=== PATIENT | male | born 1960 | race Caucasian/White ===

== ENCOUNTER 2019-04-04 09:48 | Outpatient (REF) | payer OTHER, SELFPAY ==
[2019-04-04 13:26] LABS: ALT 24 U/L (12-78); AST 22 U/L (15-37); Albumin 3.8 g/dL (3.4-5.0); Alkaline Phosphatase 70 U/L (46-116); Anion Gap 7.7 mmol/L (3-11); BUN 19 mg/dL (7-18); Bilirubin, Total 0.3 mg/dL (0.2-1.0); CO2 29.3 mmol/L (21.0-32.0); CREATININE 0.84 mg/dL (0.70-1.30); Calcium 9.1 mg/dL (8.5-10.1); Calculated LDL 97; Chloride 106 mmol/L (98-107); Cholesterol 159 mg/dL (50-200); Glucose 93 mg/dL (70-100); HDL Cholesterol 55 mg/dL (40-60); Potassium 4.8 mmol/L (3.5-5.1); Sodium 143 mmol/L (136-145); Total Protein 7.1 g/dL (6.4-8.2); Triglyceride 35 mg/dL (30-150)
== END 2019-04-04 10:08 ==
LOC: NCHCN 09:48
PROVIDERS: PCP Nurse Practitioner; Visit Provider Nurse Practitioner
DX: E78.5 Hyperlipidemia, unspecified (principal); R00.2 Palpitations
CPT/HCPCS: 80053; 80061; 83721

== ENCOUNTER 2019-04-24 01:14 | Outpatient (CLI) | payer OTHER, SELFPAY ==
--- NOTE | 2019-04-24 13:00 | DI.US_ITS ---
SYMPTOMS/DIAGNOSIS: RIGHT TESTICULAR PAIN, N50.811, X 6 MONTHS, SWELLING X SEVERAL YEARS, S/P HERNIA SURGERY SEVERAL YEARS AGO SCROTAL ULTRASOUND: There are bilateral hydroceles, right greater than left. Debris is seen within the hydroceles. There is no evidence of varicocele. There is a small spermatocele in the right epididymal head measuring 3 mm. There is a mildly prominent left testicular appendage. The testicles are normal in size and show normal echogenicity and blood flow. There is no evidence of mass or torsion. IMPRESSION: Bilateral hydroceles, right greater than left.
== END 2019-04-24 01:34 ==
PROVIDERS: PCP Nurse Practitioner; Visit Provider Nurse Practitioner
DX: N50.811 Right testicular pain (principal); N43.3 Hydrocele, unspecified; N43.41 Spermatocele of epididymis, single
CPT/HCPCS: 76870

== ENCOUNTER 2021-05-26 07:35 | Outpatient (REF) | payer OTHER, SELFPAY ==
[2021-05-26 17:29] LABS: HCT 47.8 % (40.0-50.0); HGB 15.5 g/dL (13.5-17.5); MCH 31.8 pg (27.0-33.0); MCHC 32.4 % (32.0-36.0); MPV 11.7 fL (8.0-11.0); Platelet Count 232 10^3/uL (130-400); RBC 4.88 10^6/uL (4.36-5.78); RDW-SD 46.9 fL; WBC 7.44 10^3/uL (4.4-10.8)
[2021-05-26 17:40] LABS: ALT 22 U/L (16-63); AST 18 U/L (15-37); Alkaline Phosphatase 70 U/L (46-116); Anion Gap 11.9 mmol/L (3-11); BUN 18 mg/dL (7-18); Bilirubin, Total 0.3 mg/dL (0.2-1.0); CO2 27.1 mmol/L (21.0-32.0); CREATININE 0.9 mg/dL (0.70-1.30); Calculated LDL 96 mg/dL (<100); Chloride 107 mmol/L (98-107); Cholesterol 159 mg/dL (<200); Glucose 95 mg/dL (74-106); HDL Cholesterol 53 mg/dL (40-60); Magnesium 2.1 mg/dL (1.8-2.4); Potassium 4.7 mmol/L (3.5-5.1); Sodium 146 mmol/L (136-145); TSH (W/Ref FT4) 1.96 uIU/mL (0.36-3.74); Total Protein 7.2 g/dL (6.4-8.2); Triglyceride 54 mg/dL (<150)
[2021-05-28 09:27] LABS: PSA, Screening 0.4 ng/mL (0.0-3.5)
== END 2021-05-26 07:36 | disposition home or self-care (01) ==
LOC: NCHCN 07:35
PROVIDERS: PCP Nurse Practitioner; Visit Provider Nurse Practitioner
DX: Z00.00 Encounter for general adult medical examination without abnormal findings (principal); R00.2 Palpitations; E78.5 Hyperlipidemia, unspecified; Z12.5 Encounter for screening for malignant neoplasm of prostate
CPT/HCPCS: 80053; 80061; 84153; 85027; 83735; 84443

== ENCOUNTER 2022-03-15 09:07 | Emergency (ER) | payer OTHER, SELFPAY ==
[2022-03-15 09:11] VITALS: BP 153/87; PULSE 57; RESP 18; TEMP 36.3; O2SAT 99
--- NOTE | 2022-03-15 09:45 | ED.GENADUL_ITS ---
Discharge Plan Disposition Patient Disposition: HOME Condition: Stable Discharge Details Clinical Impression: Tick bite Primary Care Provider: Slime Stafford ED Provider: Serina Duncan Home Meds and New Rx's Prescriptions: Continued atorvastatin 20 mg tablet 1 tab PO DAILY Label Comments: TAKE ONE TABLET BY MOUTH EVERY DAY aspirin 81 mg Tablet,Delayed Release (Dr/Ec) 81 mg PO DAILY Discharge Instructions Instructions: Lyme Disease (ED), Tick Bite (ED) Additional Instructions: You have been given a single dose of doxycycline to prevent Lyme disease, keep an eye on if you start having joint aches and pain, any unusual rashes or lesions, develop fever or chills, please be reassessed You can have a Lyme titer performed in 6 weeks to confirm that you have not been exposed Please follow-up with your PCP as needed return here should he have new or worsening complaints Referrals: Slime Stafford [Primary Care Provider] - Medical Decision Making Given single dose of doxycycline 200 mg for prophylaxis Return precautions discussed and patient expressed understanding Medical Records Medical records reviewed: Yes I reviewed the patient's medical records. HPI General Date/Time Provider Initiated Documentation: 03/15/22 09:33 . HPI Narrative: This 61-year-old male with history of hyperlipidemia presents with report of tick bite, patient removed the tick this morning. He states the tick was engorged. He otherwise feels well. He is unsure as to how long the tick was attached. Denies any additional complaints. Related Data Home Medications Medication Instructions Recorded Confirmed aspirin 81 mg tablet,delayed 81 mg PO DAILY 03/15/22 03/15/22 release atorvastatin 20 mg tablet 1 tab PO DAILY 03/15/22 03/15/22 Allergies Allergy/AdvReac Type Severity Reaction Status Date / Time No Known Allergies Allergy Unverified 03/15/22 09:13 General Stated Complaint: RashLesion GABRIEL: 4 Review of Systems Narrative: Review of systems obtained x3 and negative aside from indication in HPI PFSH All Active Problems (Updated 03/15/22 @ 09:39 by KARLA Tejada) Tick bite (Acute) Social History Smoking/Tobacco Use Status: Current every day Smoking risk assessment performed?: Yes Alcohol Intake: former Drug use: Daily Substance use type: marijuana Do you feel safe at home: Yes Do you feel safe in your relationship?: Yes Exam Const General: cooperative, comfortable and no acute distress Orientation: alert and oriented x3 Chest Chest/axillae images: 1. Area of tick bites, now erythema migrans region, tick remnants noted Course Vital Signs Vital signs: Vital Signs Temperature 36.3 C L 03/15/22 09:11 Pulse 57 L 03/15/22 09:11 Respiratory Rate 18 03/15/22 09:11 Blood Pressure 153/87 H 03/15/22 09:11 Pulse Oximetry 99 03/15/22 09:11 Temperature 36.3 C L 03/15/22 09:11 Temperature Source Temporal Artery Scan 03/15/22 09:11 Pulse 57 L 03/15/22 09:11 Respiratory Rate 18 03/15/22 09:11 Respiratory Effort Non-Labored 03/15/22 09:15 Blood Pressure 153/87 H 03/15/22 09:11 Blood Pressure Position Sitting 03/15/22 09:11 Pulse Oximetry 99 03/15/22 09:11 Oxygen Delivery Method Room Air 03/15/22 09:11 Oxygen Flow Rate 0 03/15/22 09:11
[2022-03-15] MEDS: Doxycycline Hyclate 100 MG CAP 200 MG PO (09:47)
== END 2022-03-15 10:08 | disposition home or self-care (01) ==
PROVIDERS: Emergency Provider Physician Assistant; PCP Nurse Practitioner
DX: S20.362A Insect bite (nonvenomous) of left front wall of thorax, initial encounter (principal); W57.XXXA Bitten or stung by nonvenomous insect and other nonvenomous arthropods, initial encounter
CPT/HCPCS: 99283

== ENCOUNTER 2023-02-08 10:09 | Outpatient (CLI) | payer OTHER, SELFPAY ==
[2023-02-08 09:26] LABS: ALT 25 U/L (16-63); AST 17 U/L (15-37); Albumin 3.5 g/dL (3.4-5.0); Alkaline Phosphatase 78 U/L (46-116); Anion Gap 7.1 mmol/L (3-11); BUN 17 mg/dL (7-18); Bilirubin, Total 0.4 mg/dL (0.2-1.0); CO2 30.9 mmol/L (21.0-32.0); Calcium 8.9 mg/dL (8.5-10.1); Calculated LDL 80 mg/dL (<100); Chloride 106 mmol/L (98-107); Cholesterol 146 mg/dL (<200); Estimated GFR 86.16 (mL/min/1.73m2); Glucose 69 mg/dL (74-106); HDL Cholesterol 48 mg/dL (40-60); Potassium 3.9 mmol/L (3.5-5.1); Sodium 144 mmol/L (136-145); Total Protein 7.1 g/dL (6.4-8.2); Triglyceride 90 mg/dL (<150)
[2023-02-08 18:09] LABS: PSA, Screening 0.4 ng/mL (<=4.5)
== END 2023-02-08 10:10 | disposition home or self-care (01) ==
LOC: LBO 10:10
PROVIDERS: PCP Nurse Practitioner; Visit Provider Nurse Practitioner Family
DX: Z71.89 Other specified counseling (principal); Z00.00 Encounter for general adult medical examination without abnormal findings; E78.5 Hyperlipidemia, unspecified; F12.20 Cannabis dependence, uncomplicated; F17.200 Nicotine dependence, unspecified, uncomplicated
CPT/HCPCS: 36415; 80053; 80061; 84153

== ENCOUNTER 2024-12-21 10:32 | Inpatient (IN) | payer OTHER, SELFPAY ==
[2024-12-21] VITALS (76 sets, daily range): BP systolic 76–149; BP diastolic 48–118; PULSE 52–175; RESP 16–29; TEMP 36.9–37.3; O2SAT 89–95
--- NOTE | 2024-12-21 10:45 | RT.EKG_ITS ---
APPROVED REPORT Exam: Resting ECG Reason for Exam: Chest discomfort Patient Location: E HR:177 bpm ECG Measurements Heart Rate 177 AXIS TN [id number] P [id number] QRSd 83 QRS 76 QT 277 T -15 QTc 484 Conclusion Atrial fibrillation with rapid V-rate...A-rate 403 Paired ventricular premature complexes...sequence of 2 V complexes Repolarization abnormality, prob rate related...ST dep, T neg, tachycardia I have reviewed and interpreted ECG and agree with software generated interpretation.
[2024-12-21] MEDS: dilTIAZem 25 MG/5 ML VIAL 15 MG IVP (11:12)
[2024-12-21] MEDS: Lactated Ringers 1,000 ML 1000 ML IV (11:13)
[2024-12-21 11:18] LABS: Abs Immature Grans 0.01 10^3/uL (0.0-0.06); Absolute Basophil Count 0.05 10^3/uL (0.0-0.2); Absolute Lymphocyte Count 1.86 10^3/uL (1.2-3.4); Absolute Monocyte Count 0.85 10^3/uL (0.1-0.8); Absolute Neutrophil Count 3.28 10^3/uL (1.2-6.7); Basophils % 0.8 %; Eosinophils % 3.2 %; HCT 49.5 % (40.0-50.0); HGB 16.2 g/dL (13.5-17.5); Immature Grans % 0.2 %; Lymphocytes % 29.8 %; MCH 31.5 pg (27.0-33.0); MCHC 32.7 % (32.0-36.0); MCV 96 fL (80-95); MPV 9.6 fL (8.0-11.0); Monocytes % 13.6 %; Neutrophils % 52.4 %; Platelet Count 228 10^3/uL (130-400); RBC 5.14 10^6/uL (4.36-5.78); RDW 12.7 % (11.8-14.1); RDW-SD 45.6 fL; WBC 6.25 10^3/uL (4.4-10.8)
[2024-12-21 11:31] LABS: PTT Activated 27.6 sec (20.6-30.2); Prothrombin Time 10.4 sec (9.1-11.1)
[2024-12-21] MEDS: dilTIAZem 25 MG/5 ML VIAL 10 MG IVP ×2 (11:31→11:41)
[2024-12-21 11:49] LABS: ALT 21 U/L (16-63); AST 20 U/L (15-37); Albumin 3.9 g/dL (3.4-5.0); Alkaline Phosphatase 80 U/L (46-116); Anion Gap 6.6 mmol/L (3-11); BUN 20 mg/dL (7-18); Bilirubin, Total 0.44 mg/dL (0.2-1.0); CO2 30.4 mmol/L (21.0-32.0); CREATININE 0.8 mg/dL (0.70-1.30); Calcium 9.4 mg/dL (8.5-10.1); Chloride 106 mmol/L (98-107); Estimated GFR 100.06 (mL/min/1.73m2); Glucose 116 mg/dL (74-106); Potassium 3.8 mmol/L (3.5-5.1); Sodium 143 mmol/L (136-145); TSH (W/Ref FT4) 1.27 uIU/mL (0.36-3.74); Total Protein 7.9 g/dL (6.4-8.2); Troponin I 6 ng/L (<or=76)
[2024-12-21 12:02] LABS: COVID-19 PCR Negative (Negative); Influenza A PCR Positive (Negative); Influenza B PCR Negative (Negative); RSV PCR Negative (Negative)
[2024-12-21 12:03] LABS: Source Nasopharynx
--- NOTE | 2024-12-21 12:16 | ED.GENADUL_ITS ---
Discharge Plan Disposition Patient Disposition: Admit to [facility] Discharge Details Chief Complaint: Chest Pain Clinical Impression: Atrial fibrillation with rapid ventricular response Admit Date/Time: 12/21/24 12:51 Admit Provider: Neri Turenr Attending Provider: Neri Turner Primary Care Provider: None,None ED Provider: Shankar Daugehrty Discharge Data Discharge Date/Time-TO BE ENTERED AT DEPARTURE: 12/21/24 13:53 HPI General Date/Time Provider Initiated Documentation: 12/21/24 11:07 . HPI Narrative: 64-year-old male with no known medical history aside for questionable high cholesterol, presents today for tachydysrhythmias. Patient states that over the last few years he has had episodes where his heart rate goes really high. They have not been able to catch this on a Holter monitor in the past. He states that it comes and goes and denies any aggravating or relieving factors in particular. He states that today it has been going on for the last few hours. He admits to mild chest discomfort, and a hollowness sensation in his chest. He denies any syncope or lightheadedness. He does admit to mild weakness. He denies any tearing or ripping sensation. He does admit to a strong family history of cardiac disease for his parents. He does smoke. No other complaints at this time. He is not on any blood thinners. Related Data Home Medications ?Medication ?Instructions ?Recorded ?Confirmed aspirin 81 mg tablet,delayed 81 mg PO DAILY 03/15/22 12/21/24 release atorvastatin 20 mg tablet 1 tab PO DAILY 03/15/22 12/21/24 Allergies Allergy/AdvReac Type Severity Reaction Status Date / Time No Known Allergies Allergy Unverified 12/21/24 11:20 General Stated Complaint: Chest Pain GABRIEL: 2 Exam Narrative Exam Narrative: 1.Const: Well-nourished, Well-developed, appearing stated age 2.Eyes: PERRL, no conjunctival injection, and symmetrical lids. 3.ENT: Atraumatic external nose and ears. Moist MM. Neck: Symmetric, trachea midline, No thyromegaly. 4.CVS: +S1/S2, Peripheral pulses 2+ and equal in all extremities. Brisk capillary refill in all extremities. 5.RESP: Unlabored respiratory effort. Clear to auscultation bilaterally. No wheezes rales or rhonchi 6.GI: Soft, Nontender/Nondistended, No hepatosplenomegaly. No guarding or rebo und. 7.MSK: Normocephalic/Atraumatic, Extremities w/o deformity or ttp No cyanosis or clubbing, Normal movement of all extremities 8.Skin: Warm, Dry. No rashes or lesions. 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 Sensation grossly intact, no focal neurologic deficits. 10.Psych: (AAO) x3. Appropriate mood and affect Course Vital Signs Vital signs: Vital Signs Temperature 36.9 C 12/21/24 10:50 Pulse 175 H 12/21/24 10:50 Respiratory Rate 20 12/21/24 10:50 Blood Pressure 139/75 12/21/24 10:50 Temperature 36.9 C 12/21/24 10:50 Temperature Source Oral 12/21/24 10:50 Pulse 70 12/21/24 11:48 Pulse 103 H 12/21/24 11:48 Respiratory Rate 21 12/21/24 11:48 Respiratory Effort Normal, Non-Labored 12/21/24 11:16 Respiratory Depth Normal 12/21/24 11:16 Respiratory Pattern Normal 12/21/24 11:16 Blood Pressure 149/89 H 12/21/24 11:48 Blood Pressure Mean 101 12/21/24 11:48 Blood Pressure Position Supine 12/21/24 10:50 Pulse Oximetry 94 12/21/24 11:48 Oxygen Delivery Method Room Air 12/21/24 10:50 Oxygen Flow Rate 0 12/21/24 10:50 Pain Level 4 12/21/24 10:50 Lab/Test Results Lab/Test Results: Laboratory Tests Range/Units 12/21/24 12/21/24 11:08 11:15 WBC (4.4-10.8) 10^3/uL 6.25 RBC (4.36-5.78) 10^6/uL 5.14 Hgb (13.5-17.5) g/dL 16.2 Hct (40.0-50.0) % 49.5 MCV (80-95) fL 96 H MCH (27.0-33.0) pg 31.5 MCHC (32.0-36.0) % 32.7 RDW (11.8-14.1) % 12.7 Plt Count (130-400) 10^3/uL 228 MPV (8.0-11.0) fL 9.6 Immature Gran % % 0.2 Neutrophils % % 52.4 Lymphocytes % % 29.8 Monocytes % % 13.6 Eosinophils % % 3.2 Basophils % % 0.8 Nucleated RBC % (0.0-0.3) % 0.0 Absolute Neutrophils (1.2-6.7) 10^3/uL 3.28 Absolute Lymphocytes (1.2-3.4) 10^3/uL 1.86 Absolute Monocytes (0.1-0.8) 10^3/uL 0.85 H Absolute Eosinophils (0.0-0.7) 10^3/uL 0.20 Absolute Basophils (0.0-0.2) 10^3/uL 0.05 PT (9.1-11.1) sec 10.4 INR (0.9-1.1) 1.0 APTT (20.6-30.2) sec 27.6 Sodium (136-145) mmol/L 143 Potassium (3.5-5.1) mmol/L 3.8 Chloride (98-107) mmol/L 106 Carbon Dioxide (21.0-32.0) mmol/L 30.4 Anion Gap (3-11) mmol/L 6.6 BUN (7-18) mg/dL 20 H Creatinine (0.70-1.30) mg/dL 0.8 Est GFR (CKD-EPI 2020) (mL/min/1.73m2) 100.06 Glucose (74-106) mg/dL 116 H Calcium (8.5-10.1) mg/dL 9.4 Total Bilirubin (0.2-1.0) mg/dL 0.44 AST (15-37) U/L 20 ALT (16-63) U/L 21 Alkaline Phosphatase (46-116) U/L 80 Troponin I (<or=76) ng/L 6 Total Protein (6.4-8.2) g/dL 7.9 Albumin (3.4-5.0) g/dL 3.9 TSH (0.36-3.74) uIU/mL 1.27 COVID-19 Source Nasopharynx SARS-CoV-2 (PCR) (Negative) Negative Influenza Type A (PCR) (Negative) Positive A Influenza Type B (PCR) (Negative) Negative RSV (PCR) (Negative) Negative Medical Decision Making 64-year-old male with no known medical history aside for questionable high cholesterol, presents today for tachydysrhythmias. Patient states that over the last few years he has had episodes where his heart rate goes really high. They have not been able to catch this on a Holter monitor in the past. He states that it comes and goes and denies any aggravating or relieving factors in particular. He states that today it has been going on for the last few hours. He admits to mild chest discomfort, and a hollowness sensation in his chest. He denies any syncope or lightheadedness. He does admit to mild weakness. He denies any tearing or ripping sensation. He does admit to a strong family history of cardiac disease for his parents. He does smoke. No other complaints at this time. He is not on any blood thinners. Exam demonstrates well-appearing male, heart rate in the 180s. Blood pressure is stable. Afebrile. EKG shows atrial fibrillation with a rapid ventricular response. With a stable blood pressure, and an unknown starting time, I do not see an indication for cardioverting electrically at this point. We will start with Cardizem, evaluate for causative etiologies, monitor closely and reassess. 11:30 AM Laboratory workup is unremarkable, thyroid function normal. Troponin/serial troponins normal. Patient is influenza A positive, he states he did have symptoms a few days ago, and this certainly may have been a component to bring about his symptoms today. Patient was given 15 of Cardizem, then 10 of Cardizem, then 10 of Cardizem, and had an improvement from a heart rate of 180 down to the 110s, however he still remained in a mild tachydysrhythmia. He was transition to a Cardizem drip. Patient otherwise remained stable. He continues to have no chest pain. Will recommend admission for continued Cardizem drip management. Discussed the case with hospitalist Dr. Mendoza, he agrees with assessment and plan. I have extensively reviewed the treatment plan with the patient. I have addressed all patient concerns at this time. I have also discussed the plan with the admitting physician and they agree with the current assessment and plan and have agreed to assume responsibility for the patient. All parties demonstrate verbal understanding and agreement with our assessment and plan at this time. The documentation in this chart was dictated using [employer] dictation software. Please excuse any dictation errors. Quality:SDOH Health Related Social Needs: No Data to Display Critical Care Time Critical Care Time Critical Care Time: Yes Total Critical Care Time: 45 Attestation: Upon my evaluation, this patient had a high probability of imminent or life- threatening deterioration, which required my direct attention, intervention, and personal management. I have personally provided 45 minutes of critical care time exclusive of time spent on separately billable procedures. Time includes review of laboratory data, radiology results, discussion with consultants, and monitoring for potential decompensation. Interventions were performed as documented. PFSH All Active Problems (Updated 12/21/24 @ 18:18 by Shankar Daugherty DO) Atrial fibrillation with rapid ventricular response (Acute) Social History Smoking/Tobacco Use Status: Current every day Tobacco Type: cigarettes and cigars Smoking risk assessment performed?: Yes Alcohol Intake: never Drug use: Daily Substance use type: marijuana Housing: house Do you feel safe at home: Yes Do you feel safe in your relationship?: Yes POCUS Exam (ED) Limited Cardiac Exam DATE OF EXAM: 12/21/24 TIME OF EXAM: 18:17 PROVIDER THAT PERFORMED THE STUDY: Shankar Daugherty IS THIS A REPEAT EXAM DURING THIS ENCOUNTER: no REASON FOR EXAM: Dyspnea VISUALIZED STRUCTURES: Left atrium, Left ventricle, Right ventricle, Mitral valve and Interventricular septum VIEW OBTAINED: Parasternal long-axis PERTINENT FINDINGS/IMPRESSION: LV dysfunction :moderate Exam complete
[2024-12-21 12:24] LABS: NT-proBNP 56 pg/mL (<300)
[2024-12-21] MEDS: dilTIAZem 125 MG in Normal Saline 100 ML IV (12:26)
[2024-12-21 13:22] LABS: Troponin I 7 ng/L (<or=76)
--- NOTE | 2024-12-21 15:05 | W.PM.HP.N ---
Date of service: 12/21/24 Time of Service: 15:05 Assessment and Plan Assessment and plan (1) Atrial fibrillation with rapid ventricular response: Status: Acute Assessment and plan: - admit to ICU - titrate diltiazem gtt as needed - will add metoprolol 5mg q6h - 2d echo recommended but will not be available here until 12/26, consider outpatient - [id number] score is 0 based on available information. will check [id number] to screen for DM. Otherwise will continue on low dose ASA only for now - check fasting lipids History of Present Illness History of Present Illness Chief Complaint: palpitations Narrative: This is a 64 yo male with no pmhx (does not usually see doctors) that presented c/o palpitations. Patient is a decent historian. Patient notes that he has had some sort of rapid HR for a number of years and that this is typically episodic, brief, and not associated with any activity. He has mostly ignored this but did get some workup in 2017 apparently that included a Holter monitor. (report notes brief SVT but nothing else) He has otherwise ignored these symptoms until today when he suddenly felt palpitations as he walked down the street with his . He says this was a sudden onset. Denies any CP earlier or now. Told me that he finally decided to man up and get checked out. Presented to the ER and was found to have HR = 180s, stable BP. [place] to be rapid AF and was given multiple diltizem boluses and put on a gtt. At the time of my eval, patient had been moved to the ICU. Was on dilt 10mg/hr with AF, HR 100-150s. Appeared comfortable. Review of Systems Constitutional Constitutional: Reports as per HPI ENT Ears, Nose, Mouth, and Throat: Denies dysphagia Cardiovascular Cardiovascular: Denies chest pain, Denies syncope, Denies lightheadedness, Reports palpitations and Denies dyspnea Respiratory Respiratory: Denies dyspnea and Denies wheezing Gastrointestinal Gastrointestinal: Denies abdominal pain, Denies change in bowel habits, Denies tenesmus, Denies change in stool character, Denies dysphagia, Denies excessive flatus, Denies early satiety, Denies dyspepsia and Denies heartburn Musculoskeletal Musculoskeletal: Reports system reviewed and no additional complaints, except as documented Neurologic Neurologic: Reports system reviewed and no additional complaints, except as documented and Denies syncope Endocrine Endocrine: Reports system reviewed and no additional complaints, except as documented and Reports palpitations Allergic/Immunologic Allergic/Immunologic: Denies wheezing PFSH All Active Problems (Updated 12/21/24 @ 15:12 by Neri Turner DO) Atrial fibrillation with rapid ventricular response (Acute) Social History Smoking/Tobacco Use Status: Current every day Tobacco Type: cigarettes and cigars Smoking risk assessment performed?: Yes Alcohol Intake: never Drug use: Daily Substance use type: marijuana Housing: house Do you feel safe at home: Yes Do you feel safe in your relationship?: Yes Meds Allergies and Home Medications Allergies Allergy/AdvReac Type Severity Reaction Status Date / Time No Known Allergies Allergy Unverified 12/21/24 11:20 Home Medications ?Medication ?Instructions ?Recorded ?Confirmed ?Type aspirin 81 mg tablet,delayed 81 mg PO DAILY 03/15/22 12/21/24 History release atorvastatin 20 mg tablet 1 tab PO DAILY 03/15/22 12/21/24 History Exam Const General: cooperative, healthy appearing, comfortable and no acute distress Nutritional Appearance: average body habitus Orientation: alert, awake and oriented x3 Neck Neck: No JVD Chest Chest: normal inspection of the chest Cardio Rate: tachycardic Rhythm: abnormal rhythm GI Inspection: normal to inspection Palpation: soft and nontender Auscultation: normal bowel sounds Skin General skin exam: no rashes or lesions noted Neuro General: patient alert, patient awake and patient oriented x3 Cranial Nerves: CN's II-XI intact bilaterally Extrem General: normal to inspection Results Labs 12/21/24 11:08 12/21/24 11:08 Labs: Laboratory Results - last 24 hr 12/21/24 12/21/24 12/21/24 11:08 11:15 12:41 WBC 6.25 RBC 5.14 Hgb 16.2 Hct 49.5 MCV 96 H MCH 31.5 MCHC 32.7 RDW 12.7 Plt Count 228 MPV 9.6 Immature Gran % 0.2 Neutrophils % 52.4 Lymphocytes % 29.8 Monocytes % 13.6 Eosinophils % 3.2 Basophils % 0.8 Nucleated RBC % 0.0 Absolute Neutrophils 3.28 Absolute Lymphocytes 1.86 Absolute Monocytes 0.85 H Absolute Eosinophils 0.20 Absolute Basophils 0.05 PT 10.4 INR 1.0 APTT 27.6 Sodium 143 Potassium 3.8 Chloride 106 Carbon Dioxide 30.4 Anion Gap 6.6 BUN 20 H Creatinine 0.8 Est GFR (CKD-EPI 2020) 100.06 Glucose 116 H Calcium 9.4 Total Bilirubin 0.44 AST 20 ALT 21 Alkaline Phosphatase 80 Troponin I 6 7 NT-Pro-B Natriuret Pep 56 Total Protein 7.9 Albumin 3.9 TSH 1.27 COVID-19 Source Nasopharynx SARS-CoV-2 (PCR) Negative Influenza Type A (PCR) Positive A Influenza Type B (PCR) Negative RSV (PCR) Negative Last Vital Signs Temp 37 C 12/21/24 13:57 Pulse 142 H 12/21/24 13:57 Resp 24 12/21/24 13:57 BP 128/118 H 12/21/24 13:57 Pulse Ox 95 12/21/24 13:57 Time Spent Time spent with Patient: <40 minutes Time was spent: preparing to see the patient(eg.review tests), ordering medications,tests, procedures, indepentently interpreting results, counseling the patient and care coordination
[2024-12-21 15:20] LABS: Troponin I 12 ng/L (<or=76)
[2024-12-21 15:55] LABS: Lab Add On Test DONE
[2024-12-21 16:02] LABS: Magnesium 1.8 mg/dL (1.8-2.4)
[2024-12-21] MEDS: Metoprolol 5 MG/5 ML VIAL IVP (16:15)
[2024-12-21] MEDS: Normal Saline Flush 10 ML SYR IVP ×2 (16:16→20:18)
[2024-12-21 16:30] LABS: Troponin I 11 ng/L (<or=76)
[2024-12-22] VITALS (84 sets, daily range): BP systolic 93–165; BP diastolic 65–126; PULSE 51–144; RESP 11–30; TEMP 37–39; O2SAT 89–97
[2024-12-22] MEDS: dilTIAZem 125 MG in Normal Saline 100 ML IV (00:20)
[2024-12-22] MEDS: Metoprolol 5 MG/5 ML VIAL IVP ×2 (04:20→09:18)
[2024-12-22 06:26] LABS: Abs Immature Grans 0.03 10^3/uL (0.0-0.06); Absolute Basophil Count 0.06 10^3/uL (0.0-0.2); Absolute Lymphocyte Count 1.97 10^3/uL (1.2-3.4); Absolute Monocyte Count 0.68 10^3/uL (0.1-0.8); Absolute Neutrophil Count 3.99 10^3/uL (1.2-6.7); Basophils % 0.9 %; Eosinophils % 2.9 %; HCT 44.7 % (40.0-50.0); HGB 14.7 g/dL (13.5-17.5); Immature Grans % 0.4 %; Lymphocytes % 28.4 %; MCH 31.4 pg (27.0-33.0); MCHC 32.9 % (32.0-36.0); MCV 96 fL (80-95); MPV 10.2 fL (8.0-11.0); Monocytes % 9.8 %; Neutrophils % 57.6 %; Platelet Count 217 10^3/uL (130-400); RBC 4.68 10^6/uL (4.36-5.78); RDW 12.9 % (11.8-14.1); RDW-SD 45.5 fL; WBC 6.93 10^3/uL (4.4-10.8)
[2024-12-22 06:43] LABS: Anion Gap 6.3 mmol/L (3-11); BUN 19 mg/dL (7-18); CO2 27.7 mmol/L (21.0-32.0); CREATININE 0.8 mg/dL (0.70-1.30); Calcium 8.6 mg/dL (8.5-10.1); Calculated LDL 68 mg/dL (<100); Chloride 108 mmol/L (98-107); Cholesterol 119 mg/dL (<200); Estimated GFR 100.06 (mL/min/1.73m2); Glucose 102 mg/dL (74-106); HDL Cholesterol 41 mg/dL (>or=40); Magnesium 1.9 mg/dL (1.8-2.4); Potassium 4.3 mmol/L (3.5-5.1); Sodium 142 mmol/L (136-145); Triglyceride 54 mg/dL (<150)
[2024-12-22] MEDS: Normal Saline Flush 10 ML SYR IVP ×3 (08:49→20:39)
[2024-12-22] MEDS: Aspirin E.C. 81 MG TABEC PO (08:49)
--- NOTE | 2024-12-22 09:25 | PDOC.CMIN ---
Date of service: 12/22/24 Time of Service: 09:25 Care Management Initial Assmt Initial Assessment Reason for Hospitalization: Afib with RVR Functional Status/Living Situation Town of Residence: [place] Advance Directives Advance Directives: Do you have an Advance Directive: N 10/27/13 10:08 AD [facility] File at [facility]: N 10/27/13 10:08 Date Asked 12/21/24 12/21/24 11:03 AD Date Reviewed COLST On File at [facility] COLST Date Scanned Code Status Resuscitation Status Full Code Care Team Visit Care Team Role Provider Type None None Primary Care Provider MD [facility]YSIC[facility] Shankar Daugherty DO Emergency Provider [facility] Neri Turner DO Admit Provider [facility] Attending Provider Discharge Potential Discharge Needs: PCP F/U Appt Anticipated Barriers to Discharge: None Identified Patient/Family Education Needs: Review discharge instructions, discuss Ask Me Three Transportation: Private vehicle Social Determinants of Health Screening Social Determinants of Health last assessed: 12/22/24 Will the Patient Participate in the Screening?: Yes Do you worry about having a steady place to live?: no Problems where you live: no known problems In the past 12 months, have you had to go without electric, gas, oil or water in your home?: no Have you or anyone in your house had to go without enough food to eat?: no Has lack of transportation kept you from medical appointments or from doing things needed for daily living?: no Has anyone in your life made you feel unsafe or unsupported?: no How hard is it for you to pay for the very basics like food, housing, medical care, and heating? Would you say it is:: Not hard at all Do you want help finding or keeping work or a job?: I do not need or want help If for any reason you need help with day-to-day activities such as bathing, preparing meals, shopping, managing finances, etc., do you get the help you need?: I don?t need any help How often do you feel lonely or isolated from those around you?: Never Do you speak a language other than Sammarinese at home?: No Does the patient want assistance with any of the above?: No PFSH All Active Problems (Updated 12/21/24 @ 18:18 by Shankar Daugherty DO) Atrial fibrillation with rapid ventricular response (Acute) Social History Smoking/Tobacco Use Status: Current every day Tobacco Type: cigarettes and cigars Smoking risk assessment performed?: Yes Alcohol Intake: never Drug use: Daily Substance use type: marijuana Housing: house Do you feel safe at home: Yes Do you feel safe in your relationship?: Yes
[2024-12-22] MEDS: dilTIAZem CD 120 MG CAPCR PO (11:37)
--- NOTE | 2024-12-22 12:23 | INITIAL_ITS ---
Date of service: 12/22/24 Time of Service: 12:23 Care Management Initial Assmt Initial Assessment Reason for Hospitalization: A fib with RVR Functional Status/Living Situation Patient Presentation: Galilea was lying in bed in the ICU when CM met with him. He was alert, oriented and easily engaged. Galilea was admitted with Afib with RVR. He presented to the ED with a heart rate in the 170s. he was started on a Diltiazem drip and admitted taryn the ICU. Overnight his heart rate decreased to the 60s and 70s and he felt better. The plan was to transition him to oral diltiazem and metoprolol , however he needed to remain on the IV diltiazem at 2.5 mls/hr. Galilea lives in a single family home in [place] with his Ashwini and his oldest son. They have 3 other children who all live locally. Galilea has been disabled since 1996. 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 He spent a month at [facility] and did outpatient PT for a very long time. Galilea is independent with ADLs and does not receive any community services. He does not use a cane or walker but shared that his gait is unsteady and that he walks like a person who is intoxicated. Town of Residence: [place] Resides with: Spouse ( Ashwini and oldest son) Significant Other/Family: [employer] Employment Status: Disabled Instrumental Activities of Daily Living (ADLs): Independent Medications Medication Management: No Issues/Barriers identified Physical Functioning/Mobility Assistive Device: none Advance Directives Advance Directives: Do you have an Advance Directive: N 10/27/13 10:08 AD On File at [facility]: N 10/27/13 10:08 Date Asked 12/21/24 12/21/24 11:03 AD Date Reviewed COLST On File at [facility] COLST Date Scanned Code Status Resuscitation Status Full Code Portal Pt does not currently have a portal and education provided: Yes Insurance Coverage/Financial Issues Insurance: David Financial Issues: Anticipate Galilea will be discharged home when medically stable. He will follow up with his PCP and Cardiology and transport with family. CM will follow and continue to assess for discharge needs. Care Team Visit Care Team Role Provider Type None None Primary Care Provider [facility] STAFF PHYSICIAN Shankar Daugherty DO Emergency Provider [facility] STAFF PHYSICIAN Neri Turner DO Admit Provider [facility] STAFF PHYSICIAN Attending Provider Social Determinants of Health Screening Social Determinants of Health last assessed: 12/22/24 Will the Patient Participate in the Screening?: Yes Do you worry about having a steady place to live?: no Problems where you live: no known problems In the past 12 months, have you had to go without electric, gas, oil or water in your home?: no Have you or anyone in your house had to go without enough food to eat?: no Has lack of transportation kept you from medical appointments or from doing things needed for daily living?: no Has anyone in your life made you feel unsafe or unsupported?: no How hard is it for you to pay for the very basics like food, housing, medical care, and heating? Would you say it is:: Not hard at all Do you want help finding or keeping work or a job?: I do not need or want help If for any reason you need help with day-to-day activities such as bathing, preparing meals, shopping, managing finances, etc., do you get the help you need?: I don?t need any help How often do you feel lonely or isolated from those around you?: Never Do you speak a language other than Lithuanian at home?: No Does the patient want assistance with any of the above?: No PFSH All Active Problems (Updated 12/21/24 @ 18:18 by Shankar Daugherty DO) Atrial fibrillation with rapid ventricular response (Acute) Social History Smoking/Tobacco Use Status: Current every day Tobacco Type: cigarettes and cigars Smoking risk assessment performed?: Yes Alcohol Intake: never Drug use: Daily Substance use type: marijuana Housing: house Do you feel safe at home: Yes Do you feel safe in your relationship?: Yes
--- NOTE | 2024-12-22 14:37 | CHAPLAIN ---
I had a short visit with Galilea this afternoon. He said he's feeling about the same as he did at home. He was pleasant and easily engaged in a conversation. I explained my role and offered support.
--- NOTE | 2024-12-22 17:02 | W.PM.PROGNOT ---
Date of Service Date of service: 12/22/24 Time of Service: 17:02 Assessment and Plan Assessment and plan (1) Atrial fibrillation with rapid ventricular response: Status: Acute Assessment and plan: - started cardizem CD 120mg this AM, will increase to 240mg for tomorrow morning - d/c IV metoprolol, starting lopressor 25mg q12h - continue ASA - as noted patient may have undiagnosed MICHAEL, would consider polysomnography as outpatient (2) Influenza A: Status: Acute Assessment and plan: - symptoms vague, unclear if he is within 48h window for Tamiflu, so we will hold for n ow - symptomatic treatment Subjective Subjective Interval history since last seen: Seen earlier this AM. Denied any c/o including palpitations and CP. Patien's rates were 85 around that time but have since increased to 90-110, still peaks to 140 with any activity. Remains on low cardizem gtt (2.5mg/hr), was given PO dosing (as detailed below). Nursing also reported that the patient desat'd down to 89% on RA and was started on 2L. Exam Const General: cooperative, healthy appearing, comfortable and no acute distress Nutritional Appearance: average body habitus Orientation: alert, awake and oriented x3 Neck Neck: No JVD Chest Chest: normal inspection of the chest Cardio Rate: tachycardic Rhythm: abnormal rhythm GI Inspection: normal to inspection Palpation: soft and nontender Auscultation: normal bowel sounds Skin General skin exam: no rashes or lesions noted Neuro General: patient alert, patient awake and patient oriented x3 Cranial Nerves: CN's II-XI intact bilaterally Extrem General: normal to inspection Objective Last Vital Signs Temp 37.0 C 12/21/24 20:01 Pulse 89 12/22/24 11:40 Resp 11 L 12/22/24 11:40 BP 127/86 12/22/24 11:31 Pulse Ox 92 12/22/24 11:40 Laboratory Results - last 24 hr 12/22/24 05:30 WBC 6.93 RBC 4.68 Hgb 14.7 Hct 44.7 MCV 96 H MCH 31.4 MCHC 32.9 RDW 12.9 Plt Count 217 MPV 10.2 Immature Gran % 0.4 Neutrophils % 57.6 Lymphocytes % 28.4 Monocytes % 9.8 Eosinophils % 2.9 Basophils % 0.9 Nucleated RBC % 0.0 Absolute Neutrophils 3.99 Absolute Lymphocytes 1.97 Absolute Monocytes 0.68 Absolute Eosinophils 0.20 Absolute Basophils 0.06 Sodium 142 Potassium 4.3 Chloride 108 H Carbon Dioxide 27.7 Anion Gap 6.3 BUN 19 H Creatinine 0.8 Est GFR (CKD-EPI 2020) 100.06 Glucose 102 Calcium 8.6 Magnesium 1.9 Triglycerides 54 Total Cholesterol 119 LDL Cholesterol, Calc 68 HDL Cholesterol 41 Time Spent with Patient Time Spent with Patient: <25 minutes Time was spent: preparing to see the patient(eg.review tests), ordering medications,tests, procedures, indepentently interpreting results and counseling the patient
[2024-12-22] MEDS: Acetaminophen 325 MG TAB 650 MG PO (17:42)
[2024-12-22] MEDS: Metoprolol 25 MG TAB PO (20:39)
[2024-12-23 01:09] VITALS: BP 112/96; PULSE 75; RESP 20; TEMP 36.8; O2SAT 99
[2024-12-23 01:36] VITALS: O2SAT 98
--- NOTE | 2024-12-23 02:39 | W.PC.ACHO ---
Registration Status: Primary Language: Preferred Language: ED Information & Data Chief Complaint Chest Pain 12/21/24 12:17 Triage Note Pt reports having hx of 12/21/24 10:50 irregular heartbeat, stating that he is having some chest discomfort. Reports 3/10 discomfort in chest. Family hx of heart disease. Pt reports it is a hollow feeling. Has experienced this before. Most Recent Vital Signs Temperature 36.8 C 12/23/24 01:09 Temperature Source Temporal Artery Scan 12/23/24 01:09 Pulse 75 12/23/24 01:09 Pulse 59 L 12/22/24 23:10 Respiratory Rate 20 12/23/24 01:09 Respiratory Effort Normal, Non-Labored 12/21/24 13:57 Respiratory Depth Normal 12/21/24 13:57 Respiratory Pattern Tachypnea 12/21/24 13:57 Blood Pressure 112/96 H 12/23/24 01:09 Blood Pressure Mean 82 12/22/24 23:01 Blood Pressure Position Supine 12/21/24 13:57 Pulse Oximetry 98 12/23/24 01:36 Oxygen Delivery Method Nasal Cannula 12/23/24 01:36 Oxygen Flow Rate 1 12/23/24 01:36 Pain Level 0 12/23/24 01:09 Comment captured by RN before my shift 12/22/24 06:30 Allergies No Known Allergies Allergy (Unverified 12/21/24 11:20) Active Medications Generic Name Dose Route Start Last Admin Trade Name Freq PRN Reason Stop Dose Admin Acetaminophen 650 mg 12/22/24 17:11 12/22/24 17:42 Acetaminophen 325 Mg Tab PO 650 mg Q6H PRN PRN Administration Aspirin 81 mg 12/22/24 08:30 12/22/24 08:49 Aspirin E.C. 81 Mg Tabec PO 81 mg DAILY CANDACE Administration Metoprolol Tartrate 25 mg 12/22/24 20:00 12/22/24 20:39 Metoprolol 25 Mg Tab PO 25 mg BID CANDACE Administration Sodium Chloride 0 ml 12/21/24 12:51 12/22/24 08:50 Normal Saline Flush 10 Ml Syr IVP 10 ml PRN PRN Administration Sodium Chloride 0 ml 12/21/24 20:00 12/22/24 20:39 Normal Saline Flush 10 Ml Syr IVP 20 ml BID CANDACE Administration IV IV Catheter Type [Right Saline Lock Antecubital] IV Catheter Gauge [Right 18 Antecubital] Diagnostics 12/23/24 12/22/24 Range/Units 05:35 05:30 WBC 6.93 (4.4-10.8) 10^3/uL RBC 4.68 (4.36-5.78) 10^6/uL Hgb 14.7 (13.5-17.5) g/dL Hct 44.7 (40.0-50.0) % MCV 96 H (80-95) fL MCH 31.4 (27.0-33.0) pg MCHC 32.9 (32.0-36.0) % RDW 12.9 (11.8-14.1) % Plt Count 217 (130-400) 10^3/uL MPV 10.2 (8.0-11.0) fL Immature Gran % 0.4 % Neutrophils % 57.6 % Lymphocytes % 28.4 % Monocytes % 9.8 % Eosinophils % 2.9 % Basophils % 0.9 % Nucleated RBC % 0.0 (0.0-0.3) % Absolute Neutrophils 3.99 (1.2-6.7) 10^3/uL Absolute Lymphocytes 1.97 (1.2-3.4) 10^3/uL Absolute Monocytes 0.68 (0.1-0.8) 10^3/uL Absolute Eosinophils 0.20 (0.0-0.7) 10^3/uL Absolute Basophils 0.06 (0.0-0.2) 10^3/uL Sodium Pending 142 (136-145) mmol/L Potassium Pending 4.3 (3.5-5.1) mmol/L Chloride Pending 108 H (98-107) mmol/L Carbon Dioxide Pending 27.7 (21.0-32.0) mmol/L Anion Gap Pending 6.3 (3-11) mmol/L BUN Pending 19 H (7-18) mg/dL Creatinine Pending 0.8 (0.70-1.30) mg/dL Est GFR (CKD-EPI 2020) Pending 100.06 (mL/min/1.73m2) Glucose Pending 102 (74-106) mg/dL Calcium Pending 8.6 (8.5-10.1) mg/dL Magnesium 1.9 (1.8-2.4) mg/dL Triglycerides 54 (<150) mg/dL Total Cholesterol 119 (<200) mg/dL LDL Cholesterol, Calc 68 (<100) mg/dL HDL Cholesterol 41 (>or=40) mg/dL Intake and Output - 24 Hour Total 12/21/24 10:32 thru 12/22/24 18:03 Intake Total 2482.583 Output Total 675 Balance 1807.583 Weight 77 kg Intake: IV 1182.583 Oral 1300 Output: Urine 675 Other: Urine Color Light Shayna Urine Appearance Clear Urine Odor None Stool Size Small Stool Characteristics Soft Falls Risk Assessment History of Falls No History 12/21/24 13:57 Contributing Factors No Factors 12/21/24 11:22 Ambulatory Aids Independent 12/21/24 13:57 Tubes/Lines W/no contributing factors 12/21/24 13:57 Gait Evaluation No gait disturbance 12/21/24 13:57 Cognition No cognitive impairment 12/21/24 13:57 Fall Total Score 10 12/21/24 13:57 Level of Risk Standard/Low Risk 12/21/24 13:57 Problems Influenza A (Acute) Atrial fibrillation with rapid ventricular response (Acute) v v v v v v v v v Sending and/or Receiving Nurses: Please use comment section below to note any information pertinent to the patient hand-off not included above. Information / Comments: pt arrived to 216 via wheel chair and ambulated independently. Report received from: GALI lopez
[2024-12-23 03:40] VITALS: BP 133/71; PULSE 73; RESP 17; TEMP 36.8; O2SAT 95
[2024-12-23 07:30] VITALS: O2SAT 94
[2024-12-23 07:32] LABS: Anion Gap 5.4 mmol/L (3-11); BUN 16 mg/dL (7-18); CO2 29.6 mmol/L (21.0-32.0); CREATININE 0.8 mg/dL (0.70-1.30); Calcium 8.9 mg/dL (8.5-10.1); Chloride 104 mmol/L (98-107); Estimated GFR 100.06 (mL/min/1.73m2); Glucose 97 mg/dL (74-106); Potassium 4.1 mmol/L (3.5-5.1); Sodium 139 mmol/L (136-145)
[2024-12-23 07:34] VITALS: BP 112/73; PULSE 63; RESP 17; TEMP 37.1; O2SAT 95
[2024-12-23] MEDS: Normal Saline Flush 10 ML SYR IVP ×2 (08:17→08:19)
[2024-12-23] MEDS: dilTIAZem CD 120 MG CAPCR 240 MG PO (08:17)
[2024-12-23] MEDS: Aspirin E.C. 81 MG TABEC PO (08:17)
[2024-12-23] MEDS: Metoprolol 25 MG TAB PO (08:18)
[2024-12-23 11:15] VITALS: BP 112/72; PULSE 64; RESP 18; TEMP 36.5; O2SAT 95
--- NOTE | 2024-12-23 11:20 | DSE_ITS ---
Date of service: 12/23/24 Time of Service: 11:20 DS: Diagnosis Discharge Diagnosis (1) Atrial fibrillation with rapid ventricular response: Status: Acute (2) Influenza A: Status: Acute Discharge Plan Disposition Patient Disposition: Home Condition: Stable Discharge Details Reason For Visit: A-Fib with RVR Admit Date/Time: 12/21/24 12:51 Admit Provider: Neri Turner Attending Provider: Neri Turner Primary Care Provider: None,None Hospital Course Hospital Course: Per H+P: This is a 64 yo male with no pmhx (does not usually see doctors) that presented c/o palpitations. Patient is a decent historian. Patient notes that he has had some sort of rapid HR for a number of years and that this is typically episodic, brief, and not associated with any activity. He has mostly ignored this but did get some workup in 2017 apparently that included a Holter monitor. (report notes brief SVT but nothing else) He has otherwise ignored these symptoms until today when he suddenly felt palpitations as he walked down the street with his . He says this was a sudden onset. Denies any CP earlier or now. Told me that he finally decided to man up and get checked out. Presented to the ER and was found to have HR = 180s, stable BP. [place] to be rapid AF and was given multiple diltizem boluses and put on a gtt. At the time of my eval, patient had been moved to the ICU. Was on dilt 10mg/hr with AF, HR 100- 150s. Appeared comfortable. Patient was started on a cardizem gtt and was sent to the ICU for monitoring. He was titrated up to 10mg/hr but still had significant tachycardia, especially with any movement. Metoprolol 5mg q6h was added with good response. He was started on PO cardizem and metprolol. Around 1700 on 12/22 he converted to NSR. Plan today will be to send home. As he is [id number] score of 0, will only use ASA for now for anticoagulation. Will need FU for 2d echo and sleep study. Wll send home with Lopressor 25mg PO BID only for now. IF he has recurrence, can return to the ER for further eval. Otherwise will need PCP for care along with outpatient cardiology eval. Home Meds and New Rx's Prescriptions: New metoprolol tartrate 25 mg Tablet 25 mg PO BID 30 Days Qty: 60 0RF Continued atorvastatin 20 mg tablet 1 tab PO DAILY Patient Comments: TAKE ONE TABLET BY MOUTH EVERY DAY aspirin 81 mg Tablet,Delayed Release (Dr/Ec) 81 mg PO DAILY Discharge Instructions Activity:: Activity as Tolerated Equipment/Supplies:: No Equipment Needed Diet:: Low Sodium Discharge Orders Discharge Orders: Discharge Order (Routine); Ordered 12/23/24 Ordered By: Neri Turner DS: Summary Time Spent with Patient providing and/or coordinating discharge services: Greater than 30 minutes Status at Discharge Functional status at discharge: independent ambulation Overall status at discharge: patient is back to baseline Mental Status: mental status grossly normal Speech and Movement: speech and movement normal Mood: congruent mood Affect: normal affect Quality:SDOH Health Related Social Needs: No Data to Display Exam Const General: cooperative, healthy appearing, comfortable and no acute distress Nutritional Appearance: average body habitus Orientation: alert, awake and oriented x3 Neck Neck: No JVD Chest Chest: normal inspection of the chest Cardio Rate: regular rate Rhythm: regular rhythm Heart Sounds: S1 normal and S2 normal GI Inspection: normal to inspection Palpation: soft and nontender Auscultation: normal bowel sounds Skin General skin exam: no rashes or lesions noted Neuro General: patient alert, patient awake and patient oriented x3 Cranial Nerves: CN's II-XI intact bilaterally Extrem General: normal to inspection Psych Mental Status: mental status grossly normal Speech and Movement: speech and movement normal Mood: congruent mood Affect: normal affect DS: Data Vitals/I&O Vitals and I&O: Vital Signs Temperature 36.5 C 12/23/24 11:15 Temperature Source Tympanic 12/23/24 11:15 Pulse 64 12/23/24 11:15 Pulse 59 L 12/22/24 23:10 Respiratory Rate 18 12/23/24 11:15 Respiratory Effort Normal, Non-Labored 12/21/24 13:57 Respiratory Depth Normal 12/21/24 13:57 Respiratory Pattern Tachypnea 12/21/24 13:57 Blood Pressure 112/72 12/23/24 11:15 Blood Pressure Mean 82 12/22/24 23:01 Blood Pressure Position Supine 12/21/24 13:57 Pulse Oximetry 95 12/23/24 11:15 Oxygen Delivery Method Room Air 12/23/24 11:15 Oxygen Flow Rate 0 12/23/24 11:15 Pain Level 0 12/23/24 11:15 Comment captured by RN before my shift 12/22/24 06:30 Intake & Output 12/22/24 12/22/24 12/23/24 11:59 23:59 11:59 Intake Total 303.708 / 647.249 343.541 / 647.249 0 / 0 Output Total 200 / 575 375 / 575 275 / 275 Balance 103.708 / 72.249 -31.459 / 72.249 -275 / -275 Weight 77 kg Intake: IV 3.708 / 47.249 43.541 / 47.249 0 / 0 Oral 300 / 600 300 / 600 Output: Urine 200 / 575 375 / 575 275 / 275 Other: Urine Color Yellow Light Shayna Straw Urine Appearance Clear Clear Clear Urine Odor None Normal Stool Size Small Stool Characteristics Soft Data Completed and Pending Labs on day of discharge: Labs from last 24 hours 12/23/24 06:47 Sodium 139 Potassium 4.1 Chloride 104 Carbon Dioxide 29.6 Anion Gap 5.4 BUN 16 Creatinine 0.8 Est GFR (CKD-EPI 2020) 100.06 Glucose 97 Calcium 8.9 PFSH All Active Problems (Updated 12/22/24 @ 17:16 by Neri Turner DO) Influenza A (Acute) Atrial fibrillation with rapid ventricular response (Acute) Social History Smoking/Tobacco Use Status: Current every day Tobacco Type: cigarettes and cigars Smoking risk assessment performed?: Yes Alcohol Intake: never Drug use: Daily Substance use type: marijuana Housing: house Do you feel safe at home: Yes Do you feel safe in your relationship?: Yes Time Spent with Patient Time Spent with Patient: <45 minutes Time was spent: preparing to see the patient(eg.review tests), indepentently interpreting results, counseling the patient and care coordination
--- NOTE | 2024-12-23 15:14 | PDOC.CMDIS ---
Date of service: 12/23/24 Time of Service: 15:14 LACE Index Scoring Tool Questions: Length of Stay (in days): 2 Was the patient admitted via the E.D.?: Yes E.D. Visits: 1 Answers: Total Score: 6 Risk of Readmission: Low Risk Care Management Discharge Plan Reason for Hospitalization: Afib with RVR Discharge Plan: Galilea will be discharged home with no new services. He will follow up with his PCP and Cardiology and transport with family. Patient/Family Education Needs: Review of discharge instructions, limitations, follow up plan and discuss Asl hi [facility] Health Related Social Needs: No Data to Display
== END 2024-12-23 12:27 | disposition home or self-care (01) | DRG 310 ==
LOC: ER 12:16 → ICU 13:49 → MS 12-23 01:03
PROVIDERS: Family Medicine; Admitting Provider Hospitalist; Emergency Provider Student in an Organized Health Care Education/Training Program; Responsible Provider Hospitalist; Visit Provider Hospitalist
DX: I48.91 Unspecified atrial fibrillation; J10.1 Influenza due to other identified influenza virus with other respiratory manifestations; F17.210 Nicotine dependence, cigarettes, uncomplicated; F12.90 Cannabis use, unspecified, uncomplicated
CPT/HCPCS: 00123; 36415; 80048; 80053; 80061; 87637; 93005; 93308; 96361; 96365; 96376; 99291; 83735; 83880; 84443; 84484; 85025; 85610; 85730; 93010; 99223; 99232; 99239

== ENCOUNTER 2025-01-24 00:52 | Outpatient (CLI) | payer OTHER, SELFPAY ==
--- NOTE | 2025-01-24 08:30 | DI.US_ITS ---
APPROVED REPORT EXAM: Comprehensive 2D, Doppler, and color-flow Echocardiogram Patient Location: Out-Patient Research/Program Director: Jamar Tran RDCS (AE) Indications: New onset paroxysmal afib Other Information Study Quality: Good Conclusion Normal left ventricular wall thickness and chamber size. Ejection fraction is 60 to 65%. Wall motio n is normal Normal right ventricular size and function Both atria are normal in size There is no structural or hemodynamically significant valvular disease Estimated right ventricular systolic pressure is 43 mmHg Wall motion Left Ventricle The left ventricle is normal size. Left ventricular systolic function is normal. The left ventricular ejection fraction is within the normal range. There is normal left ventricular wall thickness. There is normal LV segmental wall motion. There is no ventricular septal defect visualized. LVEF is 60-65% . Right Ventricle The right ventricle is normal size. The right ventricular systolic function is normal. Atria The left atrium size is normal. The right atrium size is normal. The interatrial septum is intact wit h no evidence for an atrial septal defect. Aortic Valve The aortic valve is normal in structure. Aortic valve is trileaflet. There is no aortic valvular sten osis. No aortic regurgitation is present. Mitral Valve The mitral valve is normal in structure. No evidence of mitral valve stenosis. Trace to mild mitral r egurgitation. Tricuspid Valve The tricuspid valve is normal in structure. There is no tricuspid valve stenosis. Trace to mild tricu spid regurgitation. The RVSP is 42.6 mmHg. Pulmonic Valve The pulmonary valve is normal in structure. There is no pulmonic valvular stenosis. There is no pulmo areli valvular regurgitation. Great Vessels The aortic root is normal in size. The ascending aorta is normal in size. Aortic arch is not well vis ualized. The IVC is dilated. The IVC collapses >50% with inspiration. Pericardium There is no pericardial effusion. 2D Dimensions IVSD d PLAX 0.78 cm M: 0.6-1.2 Ao Root d 2.82 cm M: 3.1 - 3.7 LVPW d PLAX 0.81 cm M: 0.6 - 1.2 Ao Asc Diam d 2.72 cm M: 2.6 - 3.4 LVID d PLAX 4.86 cm M: 4.2 - 5.8 IVC Diam exp d SLAX 3.4 cm LVDs 3.19 cm M: 2.5 - 4.0 LV EF Teichholz 63.2 % FS 34.33 % LV EDV (Teich) 110.7 mL LV ESV (Teich) 40.7 mL Stroke Vol Index (Teich) 35.71 M-Mode TAPSE 2.63 cm (M/F) >1.7 Auto EF LV EDV A4C 133.1 mL LV EDV A2C 160.3 mL LV EDV BP 147.8 mL LV ESV A4C 52.8 mL LV ESV A2C 56.3 mL LV ESV BP 55.0 mL LVEF(%) A4C 60.4 % LVEF(%) A2C 64.9 % LVEF(%) BP 62.8 % LV SV A4C 80.3 ml LV SV A2C 104.0 ml LV SV BP 92.8 ml LV CO A4C 3.6 L/min LV CO A2C 4.6 L/min LV CO BP 4.1 L/min HR A4C 44.28 BPM HR A2C 44.28 BPM LV EDV Index (BP) LA Volume LA Length A4C 4.2 cm LA Length A2C 4.8 cm LA Area A4C s 13.26 cm2 LA Area A2C s 15.92 cm2 LA Vol A4C A-L 35.37 mL LA Vol A2C A-L 44.61 mL LA Vol Biplane A-L 42.4 mL LA Vol/BSA A4C A-L LA Vol/BSA A2C A-L LA Vol/BSA BP A-L 21.7 mL/m2 LA Vol A4C MOD 32.2 mL LA Vol A2C MOD 42.7 mL LA Vol BP MOD 39.0 mL RA Volume RA Area A4C 8.8 cm2 RA ESV A4C (A-L) 19.0mL RA Vol/BSA A4C A-L RA Length A4C 3.4 cm RA ESV A4C (MOD) 17.8mL LV Diastology MV E' medial 0.097 (>0.07 m/s) MV E Vmax 0.62 (0.4-1.3 m/s) MV E/E' MED 6.39 (<14) MV A Vmax 0.40 (0.4-1.3 m/s) MV E' lateral 0.154 (>0.1 m/s) E/A Ratio 1.5 MV E/E' LAT 4.02 (<14) MV E' Average 0.126 m/s MV E/E'(average) 4.94 Aortic Valve AoV Vmax 1.18 m/s LVOT Vmax 0.99 m/s AoV Peak Grad 5.6 mmHg LVOT Peak Grad 3.9 mmHg AoV Area (Vmax) 2.59 cm2 LVOT VTI 0.236 m AoV VTI 0.288 m LVOT Mean Grad 1.9 mmHg AoV Mean [place]. 0.75 m/s LVOT SV 72.93 mL AoV Mean Grad 2.7 mmHg LVOT Diam s 1.95 cm AoV Area (VTI) 2.53 cm2 AV Regurg Peak Gr. 5.60 mmHg Velocity Ratio 0.84 Mitral Valve MV DT 211 (160-240 msec) Tricuspid Valve RA Pressure 8.00 mmHg TR Vmax 2.94 m/s TV S' 0.13 m/s TR Peak Grad 34.5 mmHg RVSP (TR) 42.6 mmHg
== END 2025-01-24 01:12 ==
LOC: DI 00:52
PROVIDERS: PCP Nurse Practitioner Family; Visit Provider Nurse Practitioner Family
DX: I48.0 Paroxysmal atrial fibrillation (principal)
CPT/HCPCS: 93306

== ENCOUNTER 2025-02-26 15:19 | Outpatient (REF) | payer OTHER, MEDICARE, SELFPAY ==
[2025-02-26 21:18] LABS: ALT 24 U/L (16-63); AST 21 U/L (15-37); Albumin 3.9 g/dL (3.4-5.0); Alkaline Phosphatase 70 U/L (46-116); Anion Gap 7.6 mmol/L (3-11); BUN 17 mg/dL (7-18); Bilirubin, Total 0.6 mg/dL (0.2-1.0); CO2 29.4 mmol/L (21.0-32.0); CREATININE 0.9 mg/dL (0.70-1.30); Calcium 9.1 mg/dL (8.5-10.1); Calculated LDL 74 mg/dL (<100); Chloride 104 mmol/L (98-107); Cholesterol 140 mg/dL (<200); Estimated GFR 96.57 (mL/min/1.73m2); Glucose 96 mg/dL (74-106); HDL Cholesterol 61 mg/dL (>or=40); Potassium 4.2 mmol/L (3.5-5.1); Sodium 141 mmol/L (136-145); Total Protein 6.8 g/dL (6.4-8.2); Triglyceride 28 mg/dL (<150)
[2025-02-28 10:32] LABS: PSA, Screening 0.5 ng/mL (<=4.5)
== END 2025-02-26 15:20 | disposition home or self-care (01) ==
LOC: NCHCN 15:19
PROVIDERS: PCP Nurse Practitioner Family; Visit Provider Nurse Practitioner Family
DX: Z00.00 Encounter for general adult medical examination without abnormal findings (principal); Z12.5 Encounter for screening for malignant neoplasm of prostate
CPT/HCPCS: 80053; 80061; 84153

== ENCOUNTER 2025-10-16 23:58 | Emergency (ER) | payer MEDICARE, OTHER, SELFPAY ==
--- NOTE | 2025-10-16 23:45 | RT.EKG_ITS ---
APPROVED REPORT Exam: Resting ECG Reason for Exam: AFIB Patient Location: E HR:138 bpm ECG Measurements Heart Rate 138 [place] [id number] P [id number] QRSd 75 QRS 67 QT 320 T 48 QTc 485 Conclusion Atrial fibrillation...? atrial activity Ventricular premature complex...V complex w/ short R-R interval I have reviewed and interpreted ECG and agree with software generated interpretation.
[2025-10-17] VITALS (35 sets, daily range): BP systolic 92–150; BP diastolic 62–113; PULSE 80–151; RESP 0–25; O2SAT 93–99
--- NOTE | 2025-10-17 00:12 | W.ED.GENAD ---
Discharge Plan Disposition Patient Disposition: Home Condition: Good Discharge Details Clinical Impression: Atrial fibrillation with rapid ventricular response Primary Care Provider: SAMI ARMENTA ED Provider: Shankar Daugherty Home Meds and New Rx's Prescriptions: No Action atorvastatin 20 mg tablet 1 tab PO DAILY Patient Comments: TAKE ONE TABLET BY MOUTH EVERY DAY aspirin 81 mg Tablet,Delayed Release (Dr/Ec) 81 mg PO DAILY metoprolol tartrate 25 mg tablet 25 mg PO BID Patient Comments: TAKE ONE TABLET BY MOUTH TWICE A DAY DIRECTED FOR AFIB Discharge Instructions Instructions: Atrial fibrillation Additional Instructions: At this time your heart rate has normalized, and your laboratory workup is reassuring. Please follow-up closely with your primary care provider for further and continued management of your atrial fibrillation. If you notice any worsening of your symptoms, or any new symptoms such as vomiting, diarrhea, fever, chills, shortness of breath, chest pain, numbness, weakness, or fainting , please return immediately to the emergency department for reevaluation. Please follow up with your primary care provider as soon as possible for reassessment and reevaluation. As always, it was a pleasure participating in your medical care today. Stand Alone Forms: Portal Information Referrals: SAMI ARMENTA, RESIDENTIAL INSTRUCTOR [Primary Care Provider, Medicine] [facility] General Date/Time Provider Initiated Documentation: 10/17/25 00:02. HPI Narrative: This is a pleasant 65-year-old male with a past medical history of atrial fibrillation on metoprolol and aspirin, who presents today for evaluation of elevated heart rate. Patient states that about an hour ago he woke up from sleep and felt his heart racing as well as some associated heartburn. He checked his heart rate and it was in the 150s to 160s. He came to the ER for further assessment. He denies any chest pain, tearing or ripping sensation, arm neck or shoulder pain. He denies any fever or chills. He has been taking his medication. He denies missing any doses. No other complaints at this time. No other modifying factors. He denies any alcohol. He recently quit tobacco smoking. Related Data Home Medications ?Medication ?Instructions ?Recorded ?Confirmed aspirin 81 mg tablet,delayed 81 mg PO DAILY 03/15/22 10/17/25 release atorvastatin 20 mg tablet 1 tab PO DAILY 03/15/22 10/17/25 metoprolol tartrate 25 mg tablet 25 mg PO BID 10/17/25 10/17/25 Allergies Allergy/AdvReac Type Severity Reaction Status Date / Time No Known Allergies Allergy Unverified 10/17/25 00:09 General Stated Complaint: Arrhythmia GABRIEL: 3 Exam Narrative Exam Narrative: 1.Const: Well-nourished, Well-developed, appearing stated age 2.Eyes: PERRL, no conjunctival injection, and symmetrical lids. 3.ENT: Atraumatic external nose and ears. Moist MM. Neck: Symmetric, trachea midline, No thyromegaly. 4.CVS: +S1/S2, Peripheral pulses 2+ and equal in all extremities. Brisk capillary refill in all extremities. 5.RESP: Unlabored respiratory effort. Clear to auscultation bilaterally. No wheezes rales or rhonchi 6.GI: Soft, Nontender/Nondistended, No hepatosplenomegaly. No guarding or rebound. 7.MSK: Normocephalic/Atraumatic, Extremities w/o deformity or ttp No cyanosis or clubbing, Normal movement of all extremities 8.Skin: Warm, Dry. No rashes or lesions. 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 Sensation grossly intact, no focal neurologic deficits. 10.Psych: (AAO) x3. Appropriate mood and affect Course Vital Signs Vital signs: Vital Signs Pulse 148 H 10/17/25 00:03 Respiratory Rate 16 10/17/25 00:03 Blood Pressure 150/113 H 10/17/25 00:03 Pulse Oximetry 99 10/17/25 00:03 Pulse 148 H 10/17/25 00:03 Respiratory Rate 16 10/17/25 00:03 Blood Pressure 150/113 H 10/17/25 00:03 Blood Pressure Position Supine 10/17/25 00:03 Pulse Oximetry 99 10/17/25 00:03 Oxygen Delivery Method Room Air 10/17/25 00:03 Oxygen Flow Rate 0 10/17/25 00:03 Pain Level 0 10/17/25 00:03 Medical Decision Making This is a pleasant 65-year-old male with a past medical history of atrial fibrillation on metoprolol and aspirin, who presents today for evaluation of elevated heart rate. Patient states that about an hour ago he woke up from sleep and felt his heart racing as well as some associated heartburn. He checked his heart rate and it was in the 150s to 160s. He came to the ER for further assessment. He denies any chest pain, tearing or ripping sensation, arm neck or shoulder pain. He denies any fever or chills. He has been taking his medication. He denies missing any doses. No other complaints at this time. No other modifying factors. He denies any alcohol. He recently quit tobacco smoking. Physical exam demonstrates a well-appearing male, no acute distress, patient's heart rate is elevated in the 150s, no chest pain. Screening EKG shows no evidence of STEMI, no other significant abnormalities aside for A-fib with RVR. We will gently rehydrate, will start with 5 of metoprolol, we will monitor closely and reassess. 3:02 AM Patient was treated for his A-fib, he was given 3 doses of 5 mg metoprolol and had mild to serial troponins are within normal limits. Thyroid function demonstrates an elevated TSH but normal free T4. Moderate improvement, heart rate came down to the 100s but still stayed mildly tachycardic. He was subsequently given a single dose of Cardizem 10 mg and rate came down to the 70s and 80s. Blood pressure remained stable, electrolyte workup was relatively benign with no significant abnormality. Thyroid function demonstrated an elevated TSH, but a normal free T4. Serial troponins were normal. Patient feels well, symptoms inconsistent with ACS. Patient remains hemodynamically stable. Patient will be discharged home, recommendation continuation for metoprolol at home. Discussed red flags for which to return. Patient remains in the low risk category for the [id number] 2 score and does not necessitate need for anticoagulation at this time. However we will recommend continued follow-up discussion with the PCP. Discussed red flags for which to return. I have extensively reviewed the treatment plan and discharge instructions with the patient. I have addressed all patient concerns at this time. The patient was made aware of what symptoms to monitor for that would warrant a return to the emergency department. Discussed the plan with the patient, they demonstrate verbal understanding and agreement with our assessment and plan at this time. The documentation in this chart was dictated using [employer] dictation software. Please excuse any dictation errors. PFSH All Active Problems (Updated 10/17/25 @ 03:07 by Shankar R [place], DO) Influenza A (Acute) Atrial fibrillation with rapid ventricular response (Acute) Social History Smoking/Tobacco Use Status: Former Tobacco Use Smoking risk assessment performed?: Yes Alcohol Intake: never Drug use: Daily Substance use type: marijuana Housing: house Do you feel safe at home: Yes Do you feel safe in your relationship?: Yes
[2025-10-17 00:52] LABS: Abs Immature Grans 0.04 10^3/uL (0.0-0.06); HCT 36.9 % (40.0-50.0); HGB 12.4 g/dL (13.5-17.5); Immature Grans % 0.5 %; MCH 31.9 pg (27.0-33.0); MCHC 33.6 % (32.0-36.0); MCV 95 fL (80-95); MPV 9.7 fL (8.0-11.0); Platelet Count 225 10^3/uL (130-400); RBC 3.89 10^6/uL (4.36-5.78); RDW 12.3 % (11.8-14.1); RDW-SD 42.8 fL; WBC 8.70 10^3/uL (4.4-10.8)
[2025-10-17] MEDS: Metoprolol 5 MG/5 ML VIAL IVP ×3 (00:56→01:51)
[2025-10-17 01:04] LABS: INR 1.0 (0.9-1.1); PTT Activated 22.5 sec (20.6-30.2); Prothrombin Time 9.4 sec (9.1-11.1)
[2025-10-17] MEDS: Normal Saline 500 ML IV (01:04)
[2025-10-17 01:15] LABS: Troponin I 13 ng/L (<54)
[2025-10-17 01:17] LABS: ALT 30 U/L (10-49); AST 24 U/L (<34); Albumin 3.8 g/dL (3.2-5.0); Alkaline Phosphatase 96 U/L (46-116); Anion Gap 8 mmol/L (3-11); BUN 24 mg/dL (9-23); Bilirubin, Total 0.3 mg/dL (0.2-1.2); CO2 27.0 mmol/L (20.0-31.0); Calcium 8.5 mg/dL (8.3-10.6); Chloride 111 mmol/L (98-107); Glucose 116 mg/dL (74-106); Potassium 4.0 mmol/L (3.5-5.1); Sodium 146 mmol/L (136-145); Total Protein 6.1 g/dL (5.7-8.2)
[2025-10-17 01:19] LABS: TSH (W/Ref FT4) 5.98 uIU/mL (0.55-4.78)
[2025-10-17 02:24] LABS: Troponin I 16 ng/L (<54)
[2025-10-17] MEDS: dilTIAZem 25 MG/5 ML VIAL 10 MG IVP (02:37)
== END 2025-10-17 03:25 | disposition home or self-care (01) ==
PROVIDERS: Emergency Provider Student in an Organized Health Care Education/Training Program; PCP Nurse Practitioner Family
DX: I48.91 Unspecified atrial fibrillation (principal)
CPT/HCPCS: 36415; 80053; 93005; 96374; 96375; 96376; 99291; 84439; 84443; 84484; 85025; 85610; 85730; 93010